=== PATIENT | female | born 1955 | race African-American/Black ===

== ENCOUNTER 2018-11-25 18:37 | Inpatient (IN) | payer MEDICARE, MEDICAID, OTHER ==
[2018-11-25] MEDS: SOD CHLORIDE 0.9% 0 ML (04:00)
[2018-11-25] MEDS: SOD CHLORIDE 0.9% 1,000 ML IV (20:59)
[2018-11-25] MEDS: ONDANSETRON 4 MG INJ IV (21:00)
[2018-11-25] MEDS: morphine 4 MG/ML VIAL IV (21:00)
[2018-11-25 21:01] LABS: ADD MAN DIFF? NO
[2018-11-25 21:03] LABS: BASOPHIL # 0.1 10^3/ul (0.0-0.1); BASOPHILS % 0.4 % (0.0-2.0); EOSINOPHILS # 0.2 10^3/ul (0.0-0.5); EOSINOPHILS % 1.8 % (0.0-7.0); HEMATOCRIT 33.2 % (37.0-47.0); HEMOGLOBIN 10.8 g/dl (12.0-16.0); LYMPHOCYTES % 15.4 % (15.0-51.0); MEAN CORPUSCULAR HEMOGLOBIN 29.1 pg (29.0-33.0); MEAN CORPUSCULAR HGB CONC 32.5 g/dl (32.0-37.0); MEAN CORPUSCULAR VOLUME 89.5 fl (82.0-101.0); MEAN PLATELET VOLUME 8.5 fl (7.4-10.4); MONOCYTE # 0.8 10^3/ul (0.3-0.9); MONOCYTES % 6.2 % (0.0-11.0); NEUTROPHIL # 9.9 10^3/ul (1.6-7.5); NEUTROPHILS % 75.7 % (39.0-77.0); PLATELET COUNT 427 10^3/UL (140-415); RED BLOOD COUNT 3.71 10^6/ul (4.20-5.40); RED CELL DISTRIBUTION WIDTH 12.5 % (11.5-14.5)
[2018-11-25 21:55] LABS: ALANINE AMINOTRANSFERASE 13 IU/L (13-69); ALBUMIN 3.7 g/dl (3.3-4.9); ALBUMIN/GLOBULIN RATIO 1.19; ALKALINE PHOSPHATASE 69 IU/L (42-121); ANION GAP 10 (5-13); ASPARTATE AMINO TRANSFERASE 17 IU/L (15-46); BLOOD UREA NITROGEN 15 mg/dl (7-20); CALCIUM 9.7 mg/dl (8.4-10.2); CARBON DIOXIDE 25 mmol/L (21-31); CHLORIDE 98 mmol/L (97-110); CREATININE 1.22 mg/dl (0.44-1.00); Estimated GFR 54 mL/min (>60); GLUCOSE 121 mg/dl (70-220); LIPASE 65 U/L (23-300); POTASSIUM 4.5 mmol/L (3.5-5.1); SODIUM 133 mmol/L (135-144); TOTAL PROTEIN 6.8 g/dl (6.1-8.1)
[2018-11-25 22:07] LABS: ADD UMIC NO; TROPONIN-I < 0.012 ng/ml (0.000-0.120); UR ASCORBIC ACID 40 mg/dL (NEGATIVE); UR BILIRUBIN (Dip) NEGATIVE (NEGATIVE); UR BLOOD (Dip) NEGATIVE (NEGATIVE); UR CLARITY CLEAR (CLEAR); UR COLOR YELLOW (YELLOW); UR GLUCOSE (Dip) NEGATIVE (NEGATIVE); UR KETONES (Dip) TRACE mg/dL (NEGATIVE); UR LEUKOCYTE ESTERASE (Dip) NEGATIVE Leu/ul (NEGATIVE); UR NITRITE (Dip) NEGATIVE (NEGATIVE); UR SPECIFIC GRAVITY (Dip) 1.009 (1.003-1.030); UR TOTAL PROTEIN (Dip) NEGATIVE (NEGATIVE); UR UROBILINOGEN (Dip) NEGATIVE (NEGATIVE)
[2018-11-26] MEDS ORDERED: ACETAMINOPHEN 325 MG TAB PO ×2 (00:30→01:00)
[2018-11-26] MEDS ORDERED: NACL 0.9% 3 ML SYG IV (01:00)
[2018-11-26] MEDS ORDERED: ONDANSETRON 4 MG INJ IV (01:00)
[2018-11-26] MEDS: IOHEXOL 14.3 MG(I)/ML (ADULT) BTL PO (01:00)
[2018-11-26] MEDS ORDERED: DOCUSATE SODIUM 100 MG CAP PO (01:00)
[2018-11-26] MEDS ORDERED: BISACODYL (EC) 5 MG TAB PO (01:00)
[2018-11-26] MEDS: ONDANSETRON 4 MG INJ IV (01:21)
[2018-11-26] MEDS: morphine 2 MG INJ IV (01:22)
[2018-11-26 01:59] LABS: CANCER ANTIGEN 125 11.5 U/ml (0.0-35.0)
[2018-11-26 01:59] LABS: CARCINOEMBRYONIC ANTIGEN 1.2 ng/ml (0.0-5.0)
[2018-11-26 02:07] LABS: CANCER ANTIGEN 19-9 < 1.4 U/ml (0.0-37.0)
[2018-11-26] MEDS: SOD CHLORIDE 0.9% 1,000 ML IV ×3 (03:52→18:06)
[2018-11-26] MEDS ORDERED: ALBUTEROL 0.083% (NEB) 2.5 MG/3 ML AMP NEB (04:00)
[2018-11-26] MEDS: IODIXANOL LOCM 100 ML BTL (04:15)
[2018-11-26] MEDS ORDERED: VITAMIN A & D 5 GM OINT PACKET TOP (04:21)
[2018-11-26] MEDS: HEPARIN 5,000 UNIT/1 ML VIAL SC ×3 (04:35→22:40)
[2018-11-26] MEDS: ALBUTEROL/IPRATROPIUM (NEB) 3 ML AMP INH (05:44)
[2018-11-26] MEDS: ARNUITY ELLIPTA XX ×2 (09:19→20:41)
[2018-11-26] MEDS: CYCLOBENZAPRINE 10 MG TAB PO (09:24)
[2018-11-26] MEDS: MONTELUKAST 10 MG TAB PO (20:41)
[2018-11-26] MEDS: morphine 4 MG/ML VIAL IV (20:42)
[2018-11-27 05:25] LABS: ADD MAN DIFF? NO
[2018-11-27 05:28] LABS: BASOPHILS % 0.6 % (0.0-2.0); EOSINOPHILS # 0.4 10^3/ul (0.0-0.5); EOSINOPHILS % 5.4 % (0.0-7.0); HEMATOCRIT 29.5 % (37.0-47.0); HEMOGLOBIN 9.3 g/dl (12.0-16.0); LYMPHOCYTES # 2.2 10^3/ul (0.8-2.9); LYMPHOCYTES % 31.3 % (15.0-51.0); MEAN CORPUSCULAR HGB CONC 31.5 g/dl (32.0-37.0); MEAN CORPUSCULAR VOLUME 91.9 fl (82.0-101.0); MEAN PLATELET VOLUME 8.4 fl (7.4-10.4); MONOCYTE # 0.5 10^3/ul (0.3-0.9); MONOCYTES % 7.6 % (0.0-11.0); NEUTROPHIL # 3.8 10^3/ul (1.6-7.5); NEUTROPHILS % 54.5 % (39.0-77.0); PLATELET COUNT 357 10^3/UL (140-415); RED BLOOD COUNT 3.21 10^6/ul (4.20-5.40)
[2018-11-27] MEDS: SOD CHLORIDE 0.9% 1,000 ML IV (05:45)
[2018-11-27 05:46] LABS: HEMOGLOBIN A1C 5.9 % (0-5.9)
[2018-11-27 05:48] LABS: ALANINE AMINOTRANSFERASE 19 IU/L (13-69); ALBUMIN 3.1 g/dl (3.3-4.9); ALBUMIN/GLOBULIN RATIO 1.03; ALKALINE PHOSPHATASE 55 IU/L (42-121); ANION GAP 11 (5-13); ASPARTATE AMINO TRANSFERASE 14 IU/L (15-46); BLOOD UREA NITROGEN 11 mg/dl (7-20); CALCIUM 8.9 mg/dl (8.4-10.2); CARBON DIOXIDE 24 mmol/L (21-31); CHLORIDE 104 mmol/L (97-110); CHOLESTEROL 168 mg/dl (100-200); CREATININE 1.19 mg/dl (0.44-1.00); Estimated GFR 55 mL/min (>60); GLUCOSE 81 mg/dl (70-220); HDL CHOLESTEROL 33 mg/dl (35-98); LDL CHOLESTEROL,CALCULATED 112 mg/dl; MAGNESIUM 2.1 mg/dl (1.7-2.5); POTASSIUM 4.5 mmol/L (3.5-5.1); SODIUM 139 mmol/L (135-144); TOTAL PROTEIN 6.1 g/dl (6.1-8.1); TRIGLYCERIDES 113 mg/dl (0-149)
[2018-11-27] MEDS: HEPARIN 5,000 UNIT/1 ML VIAL SC (05:48)
[2018-11-27 06:18] LABS: THYROID STIMULATING HORMONE 0.926 MIU/L (0.465-4.680)
[2018-11-27] MEDS: CYCLOBENZAPRINE 10 MG TAB PO (09:41)
[2018-11-27] MEDS: ARNUITY ELLIPTA XX (09:41)
[2018-11-29 20:46] LABS: CANCER ANTIGEN 15-3 7 U/mL (<32)
== END 2018-11-27 13:00 | disposition home or self-care (01) | DRG 552 ==
LOC: E/R 18:37 → MS1 11-26 00:28
PROVIDERS: Family Medicine
DX: M54.5 Low back pain (principal); K31.1 Adult hypertrophic pyloric stenosis; N17.9 Acute kidney failure, unspecified; E87.1 Hypo-osmolality and hyponatremia; R14.0 Abdominal distension (gaseous); R19.09 Other intra-abdominal and pelvic swelling, mass and lump; D49.0 Neoplasm of unspecified behavior of digestive system; R59.1 Generalized enlarged lymph nodes; Z91.041 Radiographic dye allergy status; D72.829 Elevated white blood cell count, unspecified; I12.9 Hypertensive chronic kidney disease with stage 1 through stage 4 chronic kidney disease, or unspecified chronic kidney disease; N18.9 Chronic kidney disease, unspecified; E11.9 Type 2 diabetes mellitus without complications
CPT/HCPCS: 36415; 71045; 74176; 76705; 80053; 80061; 81003; 82378; 83036; 83690; 83735; 84443; 84484; 85025; 86300; 86301; 86304; 93005; 94640; 96374; 96375; 99285-25